=== PATIENT | female | born 1990 | race African-American/Black ===

== ENCOUNTER 2017-10-25 06:00 | Inpatient (IN) | payer OTHER ==
[2017-10-25 07:37] LABS: HEMATOCRIT 35.5 % (36.0-47.0); HEMOGLOBIN 12.3 g/dl (12.0-15.5); MEAN CORPUSCULAR HEMOGLOBIN 31.7 pg (27.0-33.0); MEAN CORPUSCULAR HGB CONC 34.6 g/dl (32.0-36.5); MEAN CORPUSCULAR VOLUME 91.5 fl (80.0-96.0); PLATELET COUNT, AUTOMATED 155 10^3/uL (150-450); RED BLOOD COUNT 3.88 10^6/uL (4.00-5.40); RED CELL DISTRIBUTION WIDTH 13.3 % (11.5-14.5); WHITE BLOOD COUNT 6.4 10^3/uL (4.0-10.0)
[2017-10-25] MEDS: BICITRA 30ML SOLN UDC PO (08:39)
[2017-10-25] MEDS ORDERED: ONDANSETRON 4MG/2ML VIAL (J2405) IV ×2 (08:51→10:45)
[2017-10-25] MEDS ORDERED: METOCLOPRAMIDE INJ 10MG/2ML VIAL (J2765) IV ×2 (08:51→10:30)
[2017-10-25] MEDS ORDERED: NALOXONE INJ 0.4 MG/1 ML VIAL (J2310) IV ×2 (08:51)
[2017-10-25] MEDS ORDERED: NALBUPHINE HCL 10 MG/ML AMP (J2300) IV ×2 (08:51→10:45)
[2017-10-25] MEDS: PRENATAL VITAMINS CHEWABLE TABLET PO (09:00)
[2017-10-25] MEDS ORDERED: ePHEDrine SULFATE 25 MG/5 ML(5MG/ML) SYRINGE As Ordered (09:07)
[2017-10-25] MEDS ORDERED: MORPHINE PRES-FREE INJ 10 MG/10 ML VIAL (J2274) As Ordered (09:07)
[2017-10-25] MEDS ORDERED: KETOROLAC 60 MG/2 ML VIAL (J1885) As Ordered (09:07)
[2017-10-25] MEDS ORDERED: dexameTHASONE 4 MG/ML 1ML VIAL (J1100) As Ordered (09:07)
[2017-10-25] MEDS ORDERED: ONDANSETRON 4MG/2ML VIAL (J2405) As Ordered (09:07)
[2017-10-25] MEDS ORDERED: PHENYLephrine HCL 500 MCG/5 ML (100MCG/ML) SYRINGE (J2370) As Ordered (09:07)
[2017-10-25] MEDS ORDERED: OXYTOCIN INJ 10 UNITS/ML VIAL (J2590) As Ordered (09:07)
[2017-10-25] MEDS: LR 1,000 ML IV ×4 (10:24→21:38)
[2017-10-25] MEDS ORDERED: NALBUPHINE HCL 10 MG/ML AMP (J2300) As Ordered (10:32)
[2017-10-25] MEDS ORDERED: fentaNYL 100 MCG/2 ML INJECTION (J3010) IV (10:45)
[2017-10-25] MEDS ORDERED: MORPHINE 10 MG/ML 1ML VIAL (J2270) IV (10:45)
[2017-10-25] MEDS: LABETALOL 200 MG TAB PO (12:49)
[2017-10-25] MEDS: KETOROLAC 30 MG/ML VIAL (J1885) IV ×2 (15:18→21:26)
[2017-10-25] MEDS: DOCUSATE SODIUM 100 MG CAP PO (21:26)
[2017-10-25] MEDS: LABETALOL 100 MG TAB PO (21:29)
[2017-10-26] MEDS: KETOROLAC 30 MG/ML VIAL (J1885) IV (03:12)
[2017-10-26 07:03] LABS: HEMATOCRIT 30.6 % (36.0-47.0); HEMOGLOBIN 10.6 g/dl (12.0-15.5); MEAN CORPUSCULAR HEMOGLOBIN 31.5 pg (27.0-33.0); MEAN CORPUSCULAR HGB CONC 34.6 g/dl (32.0-36.5); MEAN CORPUSCULAR VOLUME 91.1 fl (80.0-96.0); PLATELET COUNT, AUTOMATED 139 10^3/uL (150-450); RED BLOOD COUNT 3.36 10^6/uL (4.00-5.40); RED CELL DISTRIBUTION WIDTH 13.2 % (11.5-14.5); WHITE BLOOD COUNT 20.4 10^3/uL (4.0-10.0)
[2017-10-26] MEDS: PRENATAL VITAMINS CHEWABLE TABLET PO (08:02)
[2017-10-26] MEDS: DOCUSATE SODIUM 100 MG CAP PO ×2 (08:02→19:38)
[2017-10-26] MEDS: LABETALOL 100 MG TAB PO (08:02)
[2017-10-26] MEDS: LR 1,000 ML IV ×2 (10:24→17:47)
[2017-10-26] MEDS: IBUPROFEN 800 MG TAB PO ×2 (11:36→19:39)
[2017-10-26] MEDS: PERCOCET 5MG/325MG TAB PO (17:48)
[2017-10-26] MEDS: MEASLES,MUMPS,RUBELLA VACCINE INJ (MMR-II) (90707) SC (20:15)
[2017-10-26] MEDS: RHOGAM 300 MCG (1500 IU) INJ (J2790) IM (20:15)
[2017-10-27] MEDS: PERCOCET 5MG/325MG TAB PO ×2 (01:01→09:15)
[2017-10-27] MEDS: IBUPROFEN 800 MG TAB PO (02:11)
[2017-10-27] MEDS: PRENATAL VITAMINS CHEWABLE TABLET PO (09:14)
[2017-10-27] MEDS: DOCUSATE SODIUM 100 MG CAP PO (09:14)
== END 2017-10-27 10:30 | disposition home or self-care (01) | DRG 766 ==
LOC: M LDI 06:00 → M OBS 12:58
PROVIDERS: Obstetrics & Gynecology
PROC: 10D00Z1 Extraction of Products of Conception, Low, Open Approach (ICD-10-PCS; principal; 2017-10-25 08:30)
PROC: 0UB70ZZ Excision of Bilateral Fallopian Tubes, Open Approach (ICD-10-PCS; 2017-10-25 08:30)
DX: O34.211 Maternal care for low transverse scar from previous cesarean delivery (principal); Z3A.40 40 weeks gestation of pregnancy; Z37.0 Single live birth; Z30.2 Encounter for sterilization